=== PATIENT | female | born 1965 | race Caucasian/White ===

== ENCOUNTER 2016-11-24 11:00 | Inpatient (IN) | payer OTHER ==
[2016-11-23 15:39] VITALS: BMI 25.7
[2016-12-02] MEDS ORDERED: MIDAZOLAM HCL 2 MG/2 ML SINGLE DOSE VIAL ONE ×2 (07:30)
[2016-12-02] MEDS ORDERED: SUCCINYLCHOLINE CHLORIDE 200 MG/10 ML VIAL ONE (07:30)
[2016-12-02] MEDS ORDERED: ROCURONIUM BROMIDE 50 MG/5 ML VIAL ONE ×2 (07:30)
[2016-12-02] MEDS ORDERED: PROPOFOL 20 ML ONE ×5 (07:30)
[2016-12-02] MEDS ORDERED: THROMBIN (BOVINE) 5,000 UNIT VIAL TP ONE ×2 (08:56→10:01)
[2016-12-02] MEDS ORDERED: GLYCOPYRROLATE 0.2 MG/1 ML VIAL ONE (09:05)
[2016-12-02] MEDS ORDERED: CLINDAMYCIN PHOSPHATE 600 MG/4 ML VIAL ONE (09:05)
[2016-12-02] MEDS ORDERED: ONDANSETRON 4 MG/2 ML VIAL ONE (09:05)
[2016-12-02] MEDS ORDERED: DEXAMETHASONE SOD PHOSPHATE 4 MG/1 ML VIAL ONE (09:05)
[2016-12-02] MEDS ORDERED: HYDROmorphone HCL/PF 1 MG/ML VIAL (FOR PYXIS CHARGING ONLY) ONE ×2 (09:15→10:53)
[2016-12-02] MEDS ORDERED: GELATIN, ABSORBABLE 100 EACH SPONGE TP ONE (10:01)
[2016-12-02] MEDS ORDERED: ACETAMINOPHEN INJECTION 100 ML IVPB ONE (10:26)
[2016-12-02] MEDS ORDERED: NEOSTIGMINE METHYLSULFATE 0.5 MG/ML - 10 ML MDV ONE (10:27)
[2016-12-02] MEDS ORDERED: VANCOMYCIN 1,000 MG VIAL (RESTRICTED TO ID ONLY) ONE (11:27)
[2016-12-02] MEDS ORDERED: HYDROmorphone *PCA* 10MG/50ML DISP.SYRIN PCA ONE ×2 (11:49→13:27)
[2016-12-02] MEDS ORDERED: HYDROmorphone *PCA* 10MG/50ML DISP.SYRIN PCA SCH (12:30)
[2016-12-02] MEDS ORDERED: ONDANSETRON 4 MG/2 ML VIAL IVPUSH PRN (12:49)
[2016-12-02] MEDS: SODIUM CHLORIDE 0.45% 1,000 ML IV SCH (15:29)
[2016-12-02] MEDS: LACTATED RINGERS SOLUTION 1,000 ML IV SCH (15:30)
--- NOTE | 2016-12-02 18:24 | PN ---
Progress Note (short form) - Note Progress Note: the patient is resting comfortably. She complains of back pain well controlled on the IV OCEAN EXPORT COORDINATOR. Afebrile, vital signs are stable. The dressing is clean. Bilateral lower extremities show full motor strength. Distal pulses are 2+ bilaterally. Status post lumbar laminectomy and instrumented fusion at L4-5, clinically stable. -Out of bed, PT, ambulation training. -DC IV OCEAN EXPORT COORDINATOR tomorrow. -Anticipate discharge on December 04, 2016.
[2016-12-02] MEDS: CLINDAMYCIN 600MG PREMIX IVPB 50 ML IVPB SCH (18:48)
[2016-12-02 19:12] LABS: HIV 1 & 2 AB NEGATIVE; HIV 1 AGp24 NEGATIVE
[2016-12-02] MEDS: DOCUSATE SODIUM 100 MG CAPSULE (FP) PO SCH (21:57)
[2016-12-03] MEDS ORDERED: DEXAMETHASONE SOD PHOSPHATE 4 MG/1 ML VIAL IVPUSH PRN (00:59)
[2016-12-03] MEDS ORDERED: morphine SULFATE/PF 30 MG/30 ML *PCA* DISP.SYRIN PCA SCH (01:00)
[2016-12-03] MEDS ORDERED: morphine SULFATE/PF 30 MG/30 ML *PCA* DISP.SYRIN PCA ONE (01:12)
[2016-12-03] MEDS: CLINDAMYCIN 600MG PREMIX IVPB 50 ML IVPB SCH ×2 (01:42→09:44)
[2016-12-03] MEDS ORDERED: PT OWN MED DRAWER 7, Y5N ONE (09:42)
[2016-12-03] MEDS: FLUoxetine HCL 10 MG CAPSULE (FP) PO SCH (09:44)
[2016-12-03] MEDS: LACTOBACILLUS ACIDOPHILUS 1 EACH TAB (FP) PO SCH (09:44)
[2016-12-03] MEDS: CHOLECALCIFEROL (VITAMIN D3) 1,000 UNIT TABLET (FP) PO SCH (09:44)
[2016-12-03] MEDS: DOCUSATE SODIUM 100 MG CAPSULE (FP) PO SCH ×2 (09:44→21:31)
--- NOTE | 2016-12-03 09:55 | OP ---
DATE OF OPERATION: 12/02/2016 PREOPERATIVE DIAGNOSIS: 1. Lumbar spinal stenosis. 2. Degenerative spondylolisthesis. 3. Degenerative disc disease of lumbar spine. POSTOPERATIVE DIAGNOSIS: 1. Lumbar spinal stenosis. 2. Degenerative spondylolisthesis. 3. Degenerative disc disease of lumbar spine. PROCEDURE PERFORMED: 1. Posterior lumbar single-level arthrodesis at L4-L5. 2. Posterior lumbar decompressive laminectomy at L4-L5. 3. Application of nonsegmental posterior spinal instrumentation NuVasive MAS PLIF screws. Two 30-mm x 5.5-mm screws at L4 and two 30-mm x 35-mm screws at L5. SURGEON: Froylan Wiseman MD SINGLE RESOURCE BOSS: CATRINA Meza ANESTHESIA: General. INDICATIONS: The patient is a 50-year-old female with severe and persistent radicular pain down both lower extremities and severe back pain. This has been refractory to medications as well as epidural steroid injections and physical therapy. She has been symptomatic severely for almost a year. She is indicated for operative decompression as well as stabilization. Risks, benefits, and alternatives of the surgery were discussed in detail with the patient. Informed consent was obtained. DESCRIPTION: The patient was brought to the operating room by stretcher and general endotracheal anesthesia was administered by the anesthesiologist. A Lino catheter was inserted. Both lower extremities were then placed for intraoperative monitoring using Supercool Schoolvision System. The patient was then flipped into the prone position on the padded Rob frame and all bony prominences were well-padded. The back was then prepped and draped in the usual sterile fashion. A timeout was performed. Prophylactic IV antibiotics were administered. Fluoroscopic C-arm was draped to allow for intraoperative lateral fluoroscopic radiographs. Localizing radiograph was taken and a midline incision was made at the appropriate level. Dissection was carried down to the level of the fascia. The fascia was then split with electrocautery, exposing the L4 lamina as well as the L4-L5 facet joints bilaterally and the base of the L3-L4 facet. A deep retractor was then placed. Another localizing x-ray was taken. Instrumentation of the spine was done as follows: A pilot captain hole was made while visualizing under fluoroscopy, entering from the pars interarticularis at L4 and directed superior and lateral. A 5-mm drill was then passed while directly monitoring with the Neurovision System. The zabala of the pedicle were then checked with a probe and a 5.5-mm tap was then passed. In this fashion, two 30-mm x 5.5-mm screws were placed at L4. The same technique was used to place screws at L5 bilaterally, using two 5.5 x 35-mm screws. All of the screws stimulated greater than 20 milliamperes. A complete decompressive laminectomy of the L4 lamina was then performed with partial medial facetectomy and foraminotomy. There was noted to be severe spinal stenosis and ligamentum hypertrophy in keeping with the preoperative MRI. The severe stenosis was well decompressed. No durotomy was noted. Hemostasis was achieved. The wounds were then copiously irrigated. The facet joints were then prepared with arthrodesis using a bur. The joints were then packed with morselized local autograft as well as formal graft. The screw heads were then engaged. Two 30-mm rods were then secured into place with screw caps, which were final tightened using the torquing device. The deep fascia was closed with number 1 Vicryl suture in an interrupted fashion. The deep dermal tissue was approximated with 2-0 Vicryl suture. One gram of vancomycin powder was placed in the soft tissues for infection prophylaxis. The skin was closed with a running 2-0 nylon suture. A sterile dressing was applied. The patient tolerated the procedure well without complications. Sammy Mccallum PA-C, was necessary throughout the case for proper retraction of neural elements and instrumentation of the spine. This could not have been done without a skilled investigative assistant. Bruce [id number]
[2016-12-03] MEDS ORDERED: PATIENT'S OWN MEDICATION (NON-FORMULARY) (Vitamin B Complex [Vitamin B Complex] 1 EACH) PO SCH (10:00)
[2016-12-03] MEDS ORDERED: BIOTIN 2500 MCG PO SCH (10:00)
[2016-12-03] MEDS ORDERED: [UNRECOGNIZED DRUG - OTHER] MC SCH (10:00)
[2016-12-03] MEDS ORDERED: PATIENT'S OWN MEDICATION (NON-FORMULARY) (L.Acidoph,Paracasei, B.Lactis [Probiotic] 1 EACH PO SCH (10:00)
--- NOTE | 2016-12-03 10:22 | PN ---
Progress Note (short form) - Note Progress Note: Post op day#1.S/P L4L5 laminectomy with fusion uder GA uneventful.Patient stable and is on Dilaudid INDUSTRIAL ROBOTICS MECHANIC for pain management.Patient c/o pain score of 2-3 when lying in bed.Will continue INDUSTRIAL ROBOTICS MECHANIC today and will f/u tomorrow.
[2016-12-03] MEDS: SODIUM CHLORIDE 0.45% 1,000 ML IV SCH (13:35)
[2016-12-03] MEDS: LACTATED RINGERS SOLUTION 1,000 ML IV SCH (13:36)
--- NOTE | 2016-12-03 18:57 | PN ---
Progress Note (short form) - Note Progress Note: Orthopedic progress note. S: The patient is resting comfortably. She complains of localized low back pain well controlled on the IV MEDICAL APPOINTMENT CLERK. Relates previous left leg radiculopathy has resolved. Has ambulated x3 today with assistance, ambulating to bathroom. Denies any CP/SOB/N/D/V/Numbness/tingling to either lower extremity, denies any calf pain or tenderness. Tolerating diet and voiding without compromise. O: Vital Signs Period Temp Pulse Resp BP Sys/Fierro Pulse Ox Last 24 Hr 97.7 F-99.9 F 59-71 16-20 89-116/47-68 100-100 GEN: Supine, HoB elevated 30 degrees, B/L LEs elevated with pillows under flexed knees. JARAMILLO/NAD/VSS/Afebrile, Color good well appearing answering all questions appropriately. Back/LE: The dressing is clean dry and intact, minor expected post operative edema, tender to palpation around surgical site. Patient able to log roll under own power. LEs, NVID, SILT, bilateral calf non-tender to palpation, all compartments soft. Patient able to flex extend LEs without discomfort. Good bilateral quad strength. Strength 5/5 EHL, FHL, TA, GS with good dorsi/plantar flexion. Distal pulses are 2+ bilaterally. A/P: Status post lumbar laminectomy and instrumented fusion at L4-5, POD#1 clinically stable. -Out of bed, PT, ambulation training. -DC IV MEDICAL APPOINTMENT CLERK - Begin Percocet 1-2 tabs Q4-6 hours with breakthrough morphine - Orthopedic plan per Dr. Wiseman - Anticipate discharge on December 04, 2016
[2016-12-03] MEDS ORDERED: OXYCODONE/APAP 5/325MG COMBO TABLET PO PRN ×2 (18:58→18:59)
[2016-12-03] MEDS ORDERED: morphine CARPU-JECT 2 MG/1 ML DISP.SYRIN IVPUSH PRN (19:00)
[2016-12-03] MEDS ORDERED: morphine CARPU-JECT 4 MG/1 ML DISP.SYRIN IVPUSH PRN (19:04)
[2016-12-04 06:25] VITALS: BP 98/55; PULSE 64; TEMP 98.6
--- NOTE | 2016-12-04 06:50 | PN ---
Progress Note (short form) - Note Progress Note: Post op day#2.Patient stable has pain score of 2-3/10.BRAKE ADJUSTER was DC last night.No any anesthesia related problem.Patient DC from the anesthesia care.
--- NOTE | 2016-12-04 08:17 | PN ---
Progress Note (short form) - Note Progress Note: pain getting better, no leg pain avss dressing clean nvid POD#2 -oob/PT -d/c home
[2016-12-04] MEDS ORDERED: PT OWN MED DRAWER 7, Y5N ONE (09:14)
[2016-12-04] MEDS: DOCUSATE SODIUM 100 MG CAPSULE (FP) PO SCH (09:15)
[2016-12-04] MEDS: CHOLECALCIFEROL (VITAMIN D3) 1,000 UNIT TABLET (FP) PO SCH (09:15)
[2016-12-04] MEDS: FLUoxetine HCL 10 MG CAPSULE (FP) PO SCH (09:15)
[2016-12-04] MEDS: LACTOBACILLUS ACIDOPHILUS 1 EACH TAB (FP) PO SCH (09:16)
== END 2016-12-04 10:39 | disposition home or self-care (01) | DRG 498 ==
LOC: FM/S 12-02 06:27
PROVIDERS: ADMIT Orthopaedic Surgery Orthopaedic Surgery of the Spine; ATTEND Orthopaedic Surgery Orthopaedic Surgery of the Spine
PROC: 0SG00A1 (ICD-10-PCS; 2016-12-02)
PROC: 00NY0ZZ Release Lumbar Spinal Cord, Open Approach (ICD-10-PCS; principal; 2016-12-02 09:05)
DX: M51.36 Other intervertebral disc degeneration, lumbar region (principal); M48.06 Spinal stenosis, lumbar region; M43.16 Spondylolisthesis, lumbar region; F41.8 Other specified anxiety disorders
CPT/HCPCS: 36415; 72100-TC; 87389; 94760; 97116-GP; 97161-GP

== ENCOUNTER 2017-02-02 17:10 | Inpatient (IN) | payer OTHER ==
[2017-02-02 17:16] VITALS: BMI 26.4
[2017-02-02] MEDS ORDERED: morphine CARPU-JECT 4 MG/1 ML DISP.SYRIN IVPUSH ONE (17:23)
[2017-02-02] MEDS ORDERED: morphine CARPU-JECT 2 MG/1 ML DISP.SYRIN ONE (17:35)
[2017-02-02 17:38] LABS: PH,URINE 6.5 (4.5-8); URINE APPEARANCE Clear; URINE BILIRUBIN Negative (NEGATIVE); URINE BLOOD Negative (NEGATIVE); URINE GLUCOSE (UA) Negative (NEGATIVE); URINE KETONE Negative (NEGATIVE); URINE LEUK ESTERASE Trace (NEGATIVE); URINE NITRITE Negative (NEGATIVE); URINE PROTEIN Negative (NEGATIVE); URINE UROBILINOGEN 0.2 E.U/dl (0.2-1.0)
[2017-02-02 17:39] LABS: URINE COLOR YELLOW
[2017-02-02 17:43] LABS: BASOPHIL 1.2 % (0-2.0); EOSINOPHIL 7.3 % (0-4.5); MCH 29.3 pg (25.7-33.7); MCHC 33.7 g/dl (32.0-36.0); MEAN CELL VOLUME 87.2 fl (80-96); MEAN PLT VOLUME 7.7 fl (7.5-11.1); NEUTROPHILS 61.2 % (42.8-82.8); PLATELET COUNT 308 K/MM3 (134-434); RDW 12.1 % (11.6-15.6); WHITE BLOOD COUNT 8.8 K/mm3 (4.0-10.8)
[2017-02-02 17:54] LABS: ACTIVATED PTT 29.6 SECONDS (24.0-38.9)
[2017-02-02 17:55] LABS: ALBUMIN 4.3 g/dl (3.5-5.0); ALK PHOS 181 U/L (32-92); ANION GAP 10 (8-16); BILIRUBIN,TOTAL 0.8 mg/dl (0.2-1.0); CALCIUM 9.7 mg/dl (8.4-10.2); CO2 26 mmol/L (22-28); CREATININE 0.8 mg/dl (0.6-1.3); GLUCOSE,RANDOM 103 mg/dl (74-106); SGOT/AST 44 U/L (10-42); SGPT/ALT 53 U/L (10-40); TOT PROT 7.7 g/dl (6.4-8.3)
[2017-02-02 17:59] LABS: INR 1.1 (0.82-1.09); PROTHROMBIN TIME (PATIENT) 12.3 SEC (10.2-13.0)
--- NOTE | 2017-02-02 18:08 | PDOC ---
History of Present Illness - General History Source: Patient, Old Records Exam Limitations: No Limitations - History of Present Illness Initial Comments: The patient is a 51 year old female with a significant past medical history of chronic back, brought by [facility] to the emergency department today for further evaluation of worsening back pain status post laminectomy of the lower lumbar spine and fusion in November 2016. The patient was sent by her doctor for the OR tomorrow. She denies fever. <Ankit Nayak - Last Filed: 02/02/17 18:20> - General History Source: Patient Exam Limitations: No Limitations <David Castellano - Last Filed: 02/02/17 18:29> - General Chief Complaint: Pain, Acute Stated Complaint: LOWER BACK D/C Time Seen by Provider: 02/02/17 17:13 Past History <Ankit Nayak - Last Filed: 02/02/17 18:20> - Past Medical History Anemia: No Asthma: No Cancer: No Cardiac Disorders: No CVA: No COPD: No CHF: No Dementia: No Diabetes: No GI Disorders: No Disorders: No HTN: No Hypercholesterolemia: No Liver Disease: No Seizures: No Thyroid Disease: No - Psycho/Social/Smoking Cessation Hx Anxiety: No Suicidal Ideation: No Smoking History: Never smoked Have you smoked in the past 12 months: No Hx Alcohol Use: Yes Drug/Substance Use Hx: No Substance Use Type: Alcohol Hx Substance Use Treatment: No <David Castellano - Last Filed: 02/02/17 18:29> - Past Medical History Allergies/Adverse Reactions: Allergies Allergy/AdvReac Type Severity Reaction Status Date / Time erythromycin base Allergy Severe Difficulty Verified 02/02/17 17:11 Breathing Penicillins Allergy Hives Verified 02/02/17 17:11 Home Medications: Ambulatory Orders Fluoxetine HCl [Prozac -] 30 mg PO DAILY 11/23/16 Valacyclovir HCl [Valtrex] 1,000 mg PO WEEKLY 11/23/16 Buspirone HCl [Buspar -] 15 mg PO BID 02/02/17 Gabapentin [Neurontin -] 300 mg PO Q8H 02/02/17 Review of Systems - Review of Systems Able to Perform ROS?: Yes Comments:: GENERAL/CONSTITUTIONAL: No fever or chills. No weakness. HEAD, EYES, EARS, NOSE AND THROAT: No change in vision. No ear pain or discharge. No sore throat. CARDIOVASCULAR: No chest pain or shortness of breath. RESPIRATORY: No cough, wheezing, or hemoptysis. GASTROINTESTINAL: No nausea, vomiting, diarrhea or constipation. GENITOURINARY: No dysuria, frequency, or change in urination. MUSCULOSKELETAL: (+) Back pain SKIN: No rash NEUROLOGIC: No headache, vertigo, loss of consciousness, or change in strength/ sensation. ENDOCRINE: No increased thirst. No abnormal weight change. HEMATOLOGIC/LYMPHATIC: No anemia, easy bleeding, or history of blood clots. ALLERGIC/IMMUNOLOGIC: No hives or skin allergy. <Ankit Nayak - Last Filed: 02/02/17 18:20> *Physical Exam - Vital Signs Last Vital Signs Temp Pulse Resp BP Pulse Ox 98.5 F 80 16 115/75 100 02/02/17 17:11 02/02/17 17:11 02/02/17 17:11 02/02/17 17:11 02/02/17 17:11 - Physical Exam Comments: GENERAL: Awake, alert, and fully oriented, in no acute distress HEAD: No signs of trauma EYES: PERRLA, EOMI, sclera anicteric, conjunctiva clear ENT: Auricles normal inspection, hearing grossly normal, nares patent, oropharynx clear without exudates. Moist mucosa NECK/BACK: (+) Back abscess with drainage, mild oozing, and mild erythema, LUNGS: Breath sounds equal, clear to auscultation bilaterally. No wheezes, and no crackles HEART: Regular rate and rhythm, normal S1 and S2, no murmurs, rubs or gallops ABDOMEN: Soft, nontender, normoactive bowel sounds. No guarding, no rebound. No masses EXTREMITIES: Normal range of motion, no edema. No clubbing or cyanosis. No cords, erythema, or tenderness NEUROLOGICAL: Cranial nerves II through XII grossly intact. Normal speech, normal gait SKIN: Warm, Dry, normal turgor, no rashes or lesions noted. <Ankit Nayak - Last Filed: 02/02/17 18:20> - Vital Signs Last Vital Signs Temp Pulse Resp BP Pulse Ox 98.5 F 80 16 115/75 100 02/02/17 17:11 02/02/17 17:11 02/02/17 17:11 02/02/17 17:11 02/02/17 17:11 <David Castellano - Last Filed: 02/02/17 18:29> Heart Score/ECG Review #1 ECG reviewed & interpreted by me at: 18:10 02/02/17 18:09 NSR 66, no std/marialuisa, normal axis, normal intervals, QTC 389 msec <David Castellano - Last Filed: 02/02/17 18:29> ED Treatment Course - LABORATORY CBC & Chemistry Diagram: 02/02/17 17:33 02/02/17 17:33 - ADDITIONAL ORDERS Additional order review: Laboratory Results 02/02/17 02/02/17 02/02/17 17:33 17:33 17:33 INR 1.10 PTT (Actin FS) 29.6 Sodium 138 Potassium 3.9 Chloride 102 Carbon Dioxide 26 Anion Gap 10 BUN 12 Creatinine 0.8 Creat Clearance w eGFR > 60 Random Glucose 103 Calcium 9.7 Total Bilirubin 0.8 AST 44 H ALT 53 H Alkaline Phosphatase 181 H Total Protein 7.7 Albumin 4.3 Urine Color Yellow Urine Appearance Clear Urine pH 6.5 Ur Specific [place] 1.015 Urine Protein Negative Urine Glucose (UA) Negative Urine Ketones Negative Urine Blood Negative Urine Nitrite Negative Urine Bilirubin Negative Urine Urobilinogen 0.2 e.u/dl Ur Leukocyte Esterase Trace 02/02/17 17:33 RBC 4.40 MCV 87.2 MCHC 33.7 RDW 12.1 MPV 7.7 Neutrophils % 61.2 Lymphocytes % 19.4 Monocytes % 10.9 H Eosinophils % 7.3 H Basophils % 1.2 - Medications Given in the ED: ED Medications Discontinued Medications Generic Name Dose Route Start Last Admin Trade Name Stan PRN Reason Stop Dose Admin Morphine Sulfate 4 mg 02/02/17 17:23 02/02/17 17:41 Morphine Injection - IVPUSH 02/02/17 17:24 4 mg ONCE ONE Administration <Ankit Nayak - Last Filed: 02/02/17 18:20> - LABORATORY CBC & Chemistry Diagram: 02/02/17 17:33 02/02/17 17:33 - ADDITIONAL ORDERS Additional order review: Laboratory Results 02/02/17 02/02/17 17:33 17:33 Sodium 138 Potassium 3.9 Chloride 102 Carbon Dioxide 26 Anion Gap 10 BUN 12 Creatinine 0.8 Creat Clearance w eGFR > 60 Random Glucose 103 Calcium 9.7 Total Bilirubin 0.8 AST 44 H ALT 53 H Alkaline Phosphatase 181 H Total Protein 7.7 Albumin 4.3 Urine Color Yellow Urine Appearance Clear Urine pH 6.5 Ur Specific [place] 1.015 Urine Protein Negative Urine Glucose (UA) Negative Urine Ketones Negative Urine Blood Negative Urine Nitrite Negative Urine Bilirubin Negative Urine Urobilinogen 0.2 e.u/dl Ur Leukocyte Esterase Trace 02/02/17 17:33 RBC 4.40 MCV 87.2 MCHC 33.7 RDW 12.1 MPV 7.7 Neutrophils % 61.2 Lymphocytes % 19.4 Monocytes % 10.9 H Eosinophils % 7.3 H Basophils % 1.2 - RADIOLOGY Radiology Studies Ordered: Category Date Time Status CHEST X-RAY PORTABLE* [RAD] Stat Radiology 02/02/17 17:23 Taken - Medications Given in the ED: ED Medications Discontinued Medications Generic Name Dose Route Start Last Admin Trade Name Freq PRN Reason Stop Dose Admin Morphine Sulfate 4 mg 02/02/17 17:23 02/02/17 17:41 Morphine Injection - IVPUSH 02/02/17 17:24 4 mg ONCE ONE Administration <David Castellano - Last Filed: 02/02/17 18:29> Medical Decision Making - Medical Decision Making 02/02/17 18:00 A portion of this note was documented by scribe services under my direction. I have reviewed the details of the note, within reason, and agree with the documentation with the following case summary and management plan written by me. Patient treated in the ED. Nursing notes are reviewed and incorporated into the medical decision-making. Vital signs reviewed. Peripheral IV access obtained by the nurse, laboratory studies are drawn and sent, reviewed and interpreted by myself. Vital Signs Temp Pulse Resp BP Pulse Ox 98.5 F 80 16 115/75 100 02/02/17 17:11 02/02/17 17:11 02/02/17 17:11 02/02/17 17:11 02/02/17 17:11 51-year-old female with past medical history of chronic back pain, status post laminectomy of lower lumbar spine and fusion in November 2016 presents from orthopedic office here at [facility] for lumbar back abscess. The patient has developed worsening back pain with drainage and erythema. Saw their doctor today and was brought to the ED by [facility] for OR tomorrow. They request no antibiotic at this time and they will obtain cultures in the operating. Patient denies fevers. Does report some back pain. We'll obtain blood cultures, ESR, CRP to give pain control. We'll admit the patient to hospital. Nothing by mouth after midnight. Preoperative labs and chest x-ray. CBC, BMP 02/02/17 17:33 02/02/17 17:33 CMP Sodium 138 mmol/L (136-145) 02/02/17 17:33 Potassium 3.9 mmol/L (3.5-5.1) 02/02/17 17:33 Chloride 102 mmol/L (98-107) 02/02/17 17:33 Carbon Dioxide 26 mmol/L (22-28) 02/02/17 17:33 Anion Gap 10 (8-16) 02/02/17 17:33 BUN 12 mg/dl (7-18) 02/02/17 17:33 Creatinine 0.8 mg/dl (0.6-1.3) 02/02/17 17:33 Creat Clearance w eGFR > 60 (>60) 02/02/17 17:33 Random Glucose 103 mg/dl (74-106) 02/02/17 17:33 Calcium 9.7 mg/dl (8.4-10.2) 02/02/17 17:33 Total Bilirubin 0.8 mg/dl (0.2-1.0) 02/02/17 17:33 AST 44 U/L (10-42) H 02/02/17 17:33 ALT 53 U/L (10-40) H 02/02/17 17:33 Alkaline Phosphatase 181 U/L (32-92) H 02/02/17 17:33 Total Protein 7.7 g/dl (6.4-8.3) 02/02/17 17:33 Albumin 4.3 g/dl (3.5-5.0) 02/02/17 17:33 02/02/17 18:29 Case discussed with farhana hospitalist. Will admit under med/surg admission for back abscess Case discussed in detail with admitting physician including history, physical exam and ancillary studies. Admitting physician has assumed care for the patient, will follow all pending diagnostics and will complete the evaluation and treatment. <David Castellano Filed: 02/02/17 18:29> *DC/Admit/Observation/Transfer - Attestations Scribe Attestion: Documentation prepared by Ankit Nayak, acting as medical collector for David Castellano MD. <Ankit Nayak - Last Filed: 02/02/17 18:20> - Discharge Dispostion Admit: Yes <David Castellano - Last Filed: 02/02/17 18:29> Diagnosis at time of Disposition: Abscess of back - Discharge Dispostion Condition at time of disposition: Stable
[2017-02-02 18:51] LABS: ERYTHROCYTE SEDIMENTATION RATE 45 mm/hr (0-30)
[2017-02-02 18:59] LABS: C-REACTIVE PROTEIN 8.8 MG/DL (0.00-0.3)
--- NOTE | 2017-02-02 20:02 | HP ---
CHIEF COMPLAINT: Back Pain PCP: [facility] HISTORY OF PRESENT ILLNESS: This is a 51 y/o female with a past medical history of Chronic Back pain s/p Laminectomy/Fusion 11/2016, Depression, Anxiety, Genital Herpes. Who presents to the emergency department from Orthopedic's office with lumbar pain and discharge from surgical site. Patient reports having lumbar pain and noting leaking through her clothes from the surgical site x 2 days. She reports the discharge as clear to yellow with foul smelling odor. Patient went to see her ortho today and was sent in for admission for Lumbar Abscess. Patient denies bowel or urinary loss of function. Patient denies fever, chills, SOB, CP, AP, N/ V/D, constipation, dysuria. ER course was notable for: (1) CRP 8.8 (2) No Luekocytosis, Afebrile (3) EKG- NSR 66 bpm, no STD/PEÑA Recent Travel: None PAST MEDICAL HISTORY: See HPI PAST SURGICAL HISTORY: See HPI Social History: Smoking: Never Alcohol: Socially Drugs: None Family History: Non-contributory Allergies erythromycin base Allergy (Severe, Verified 02/02/17 17:11) Difficulty Breathing Penicillins Allergy (Verified 02/02/17 17:11) Hives HOME MEDICATIONS: Home Medications Medication Instructions Recorded Fluoxetine HCl [Prozac -] 30 mg PO DAILY 11/23/16 Valacyclovir HCl [Valtrex] 1,000 mg PO WEEKLY 11/23/16 Buspirone HCl [Buspar -] 15 mg PO BID 02/02/17 Gabapentin [Neurontin -] 300 mg PO Q8H 02/02/17 REVIEW OF SYSTEMS CONSTITUTIONAL: Absent: fever, chills, diaphoresis, generalized weakness, malaise, loss of appetite, weight change HEENT: Absent: rhinorrhea, nasal congestion, throat pain, throat swelling, difficulty swallowing, mouth swelling, ear pain, eye pain, visual changes CARDIOVASCULAR: Absent: chest pain, syncope, palpitations, irregular heart rate, lightheadedness , peripheral edema RESPIRATORY: Absent: cough, shortness of breath, dyspnea with exertion, orthopnea, wheezing, stridor, hemoptysis GASTROINTESTINAL: Absent: abdominal pain, abdominal distension, nausea, vomiting, diarrhea, constipation, melena, hematochezia GENITOURINARY: Absent: dysuria, frequency, urgency, hesitancy, hematuria, flank pain, genital pain MUSCULOSKELETAL: back pain Absent: myalgia, arthralgia, joint swelling, neck pain SKIN: clear- yellow discharge from lower lumbar Absent: rash, itching, lesion HEMATOLOGIC/IMMUNOLOGIC: Absent: easy bleeding, easy bruising, lymphadenopathy, frequent infections ENDOCRINE: Absent: unexplained weight gain, unexplained weight loss, heat intolerance, cold intolerance NEUROLOGIC: Absent: headache, focal weakness or paresthesias, dizziness, unsteady gait, seizure, mental status changes, bladder or bowel incontinence PSYCHIATRIC: Absent: anxiety, depression, suicidal or homicidal ideation, hallucinations. PHYSICAL EXAMINATION GENERAL: Awake, alert, and fully oriented, in mild distress. HEAD: Normal with no signs of trauma. EYES: Pupils equal, round and reactive to light, extraocular movements intact, sclera anicteric, conjunctiva clear. No lid lag. EARS, NOSE, THROAT: Ears normal, nares patent, oropharynx clear without exudates. Moist mucous membranes. NECK: Normal range of motion, supple without lymphadenopathy, JVD, or masses. LUNGS: Breath sounds equal, clear to auscultation bilaterally. No wheezes, and no crackles. No accessory muscle use. HEART: Regular rate and rhythm, normal S1 and S2 without murmur, rub or gallop. ABDOMEN: Soft, nontender, not distended, normoactive bowel sounds, no guarding, no rebound, no masses. No hepatomegaly or splenomegaly. MUSCULOSKELETAL: Tenderness to lower lumbar. Normal range of motion at all joints. No bony deformities. No CVA tenderness. UPPER EXTREMITIES: 2+ pulses, warm, well-perfused. No cyanosis. No clubbing. No peripheral edema. LOWER EXTREMITIES: 2+ pulses, warm, well-perfused. No calf tenderness. No peripheral edema. NEUROLOGICAL: Cranial nerves II-XII intact. Normal speech. Antalgic gait with cane. PSYCHIATRIC: Cooperative. Good eye contact. Appropriate mood and affect. SKIN: Back abscess with serous drainage, mild oozing, and mild erythema noted. Warm, dry, normal turgor, no rashes. normal capillary refill. Laboratory Results - last 24 hr 02/02/17 02/02/17 02/02/17 17:20 17:33 17:33 WBC 8.8 RBC 4.40 Hgb 12.9 Hct 38.4 MCV 87.2 MCHC 33.7 RDW 12.1 Plt Count 308 MPV 7.7 Neutrophils % 61.2 Lymphocytes % 19.4 Monocytes % 10.9 H Eosinophils % 7.3 H Basophils % 1.2 ESR 45 H INR PTT (Actin FS) Sodium 138 Potassium 3.9 Chloride 102 Carbon Dioxide 26 Anion Gap 10 BUN 12 Creatinine 0.8 Creat Clearance w eGFR > 60 Random Glucose 103 Calcium 9.7 Total Bilirubin 0.8 AST 44 H ALT 53 H Alkaline Phosphatase 181 H C-Reactive Protein 8.8 H Total Protein 7.7 Albumin 4.3 Urine Color Urine Appearance Urine pH Ur Specific [place] Urine Protein Urine Glucose (UA) Urine Ketones Urine Blood Urine Nitrite Urine Bilirubin Urine Urobilinogen Ur Leukocyte Esterase Blood Type A POSITIVE Antibody Screen 02/02/17 02/02/17 02/02/17 17:33 17:33 17:33 WBC RBC Hgb Hct MCV MCHC RDW Plt Count MPV Neutrophils % Lymphocytes % Monocytes % Eosinophils % Basophils % ESR INR 1.10 PTT (Actin FS) 29.6 Sodium Potassium Chloride Carbon Dioxide Anion Gap BUN Creatinine Creat Clearance w eGFR Random Glucose Calcium Total Bilirubin AST ALT Alkaline Phosphatase C-Reactive Protein Total Protein Albumin Urine Color Yellow Urine Appearance Clear Urine pH 6.5 Ur Specific [place] 1.015 Urine Protein Negative Urine Glucose (UA) Negative Urine Ketones Negative Urine Blood Negative Urine Nitrite Negative Urine Bilirubin Negative Urine Urobilinogen 0.2 e.u/dl Ur Leukocyte Esterase Trace Blood Type A POSITIVE Antibody Screen Negative *Heart Score/ECG Review #1 02/02/17 18:09 NSR 66, no std/peña, normal axis, normal intervals, QTC 389 msec ASSESSMENT/PLAN: This is a 51 y/o female with a PMHx of: Chronic Back Pain, Back Injury (work related, 2011), s/p Laminectomy/ Fusion(11/2016), Depression, Anxiety, Genital Herpes. Admitted for Lumbar Abscess, Back Pain for further evaluation of their emergent condition. Plan: 1. Lumbar Abscess - Purulent serous drainage noted on dressing with erythema to lower lumbar - Blood Cultures-pending - Elevated CRP - No Leukocytosis, Afebrile - Repeat CBC in am - Monitor vitals - Ortho Consulted- will take patient to OR tomorrow for Washout, cultures - Per Ortho, no ABX - NPO after midnight - Pain Mgmt- Morphine Sulfate prn 2. Chronic Back Pain - See Above 3. Depression and Anxiety - Continue Prozac, Buspar 4. Genital Herpes - Continue Valtrex 5. FEN - D5 1/2 NS @75cc/hr - Replete lytes prn - NPO after midnight 6. DVT Prophylaxis - OOB - SCDs - Heparin SQ Code Status: Full Code Problem List - Problem (1) Back abscess Code(s): L02.212 - CUTANEOUS ABSCESS OF BACK [ANY PART, EXCEPT BUTTOCK] (2) Depression with anxiety Code(s): F41.8 - OTHER SPECIFIED ANXIETY DISORDERS (3) Chronic back pain Code(s): M54.9 - DORSALGIA, UNSPECIFIED G89.29 - OTHER CHRONIC PAIN (4) Herpes genitalia Code(s): A60.00 - HERPESVIRAL INFECTION OF UROGENITAL SYSTEM, UNSPECIFIED (5) DVT prophylaxis Code(s): [id number] - Visit type - Emergency Visit Emergency Visit: Yes ED Registration Date: 02/02/17 Care time: The patient presented to the Emergency Department on the above date and was hospitalized for further evaluation of their emergent condition. - New Patient This patient is new to me today: Yes Date on this admission: 02/02/17 - Critical Care Critical Care patient: No
[2017-02-02] MEDS ORDERED: ONDANSETRON 4 MG/2 ML VIAL IVPUSH PRN (20:11)
[2017-02-02] MEDS: morphine CARPU-JECT 4 MG/1 ML DISP.SYRIN IVPUSH PRN (22:37)
[2017-02-03] MEDS ORDERED: DEXTROSE 5%-0.45% SALINE 1,000 ML IV SCH (00:01)
[2017-02-03 08:27] LABS: ANION GAP 10 (8-16); CALCIUM 9.2 mg/dl (8.4-10.2); CO2 26 mmol/L (22-28); CREATININE 0.7 mg/dl (0.6-1.3); GLUCOSE,RANDOM 105 mg/dl (74-106)
[2017-02-03 08:32] LABS: BASOPHIL 1.2 % (0-2.0); EOSINOPHIL 8.5 % (0-4.5); MCHC 34.3 g/dl (32.0-36.0); MEAN CELL VOLUME 87.4 fl (80-96); MEAN PLT VOLUME 8.1 fl (7.5-11.1); NEUTROPHILS 52.6 % (42.8-82.8); PLATELET COUNT 233 K/MM3 (134-434); RDW 12.4 % (11.6-15.6); WHITE BLOOD COUNT 6.8 K/mm3 (4.0-10.8)
--- NOTE | 2017-02-03 09:34 | PN ---
Physical Exam: SUBJECTIVE: Patient seen and examined, pt is s/p I&D of lumbar wound, denies any paresthesia to the lower extremities, reports 10/10 burning pain to the lower back. OBJECTIVE: patient is a 51 y/o female with a past medical history of Chronic Back pain s/p Laminectomy/Fusion 11/2016, Depression, Anxiety, Herpes simplex type II. patient was admitted from the emergency department for lumbar wound, pt is s/p I&D of lumbar wound (Oh). Vital Signs Period Temp Pulse Resp BP Sys/Fierro Pulse Ox Last 24 Hr 98.1 F-98.3 F 65-67 18-18 94-107/57-73 95-96 GENERAL: The patient is awake, alert, and fully oriented, in no acute distress. HEAD: Normal with no signs of trauma. EYES: PERRL, extraocular movements intact, sclera anicteric, conjunctiva clear. No ptosis. ENT: Ears normal, nares patent, oropharynx clear without exudates, moist mucous membranes. NECK: Trachea midline, full range of motion, supple. LUNGS: Breath sounds equal, clear to auscultation bilaterally, no wheezes, no crackles, no accessory muscle use. HEART: Regular rate and rhythm, S1, S2 without murmur, rub or gallop. ABDOMEN: Soft, nontender, nondistended, normoactive bowel sounds, no guarding, no rebound, no hepatosplenomegaly, no masses. EXTREMITIES: 2+ pulses, warm, well-perfused, no edema. NEUROLOGICAL: Cranial nerves II through XII grossly intact. Normal speech, gait not observed. PSYCH: Normal mood, normal affect. SKIN: Warm, dry, normal turgor, no rashes or lesions noted, unable assess surgical incision due to patient intolerance to turning secondary to pain Laboratory Results - last 24 hr 02/03/17 02/03/17 07:18 07:18 WBC 6.8 RBC 3.67 Hgb 11.0 D Hct 32.1 L D MCV 87.4 MCHC 34.3 RDW 12.4 Plt Count 233 D MPV 8.1 Neutrophils % 52.6 Lymphocytes % 23.6 D Monocytes % 14.1 H Eosinophils % 8.5 H Basophils % 1.2 Sodium 139 Potassium 4.0 Chloride 103 Carbon Dioxide 26 Anion Gap 10 BUN 9 D Creatinine 0.7 Random Glucose 105 Calcium 9.2 Active Medications Generic Name Dose Route Start Last Admin Trade Name Stan PRN Reason Stop Dose Admin Dextrose/Sodium Chloride 1,000 mls @ 75 mls/hr 02/03/17 00:01 D5-1/2ns - IV [facility] Morphine Sulfate 4 mg 02/02/17 20:10 02/02/17 22:37 Morphine Injection - IVPUSH 4 mg Q6H PRN Administration PAIN Ondansetron HCl 4 mg 02/02/17 20:11 Zofran Injection IVPUSH Q6H PRN NAUSEA AND/OR VOMITING Senna 1 tab 02/03/17 10:00 Senna - PO BID CHRIS ASSESSMENT/PLAN: 1. s/p I&D of lumbar wound POD #O (Oh) - f/u wound, blood and urine cultures-->clindamycin started post op today after wound cultures were obtained in the OR - reports 06/29 pain, continue morphine 4mg q6h prn, start ultram 50mg q6h, ofirmev x 1 ordered, pt reports adverse reaction to oxycodone and dilaudid - PT as per orthopedist - incentive spirometer, neurovascular checks q4h - Dr TEJADA consulted and followed - appreciate ID input (Sky) 2. Depression and Anxiety - Continue Prozac, Buspar 3. ID: herpes simplex II - Continue Valtrex 5. FEN - D5 1/ NS @75cc/hr - full liquid tray - Replete lytes prn 6. DVT Prophylaxis - OOB - SCDs - Heparin SQ Code Status: Full Code Visit type - Emergency Visit Emergency Visit: Yes ED Registration Date: 02/02/17 Care time: The patient presented to the Emergency Department on the above date and was hospitalized for further evaluation of their emergent condition. - New Patient This patient is new to me today: Yes Date on this admission: 02/03/17 - Critical Care Critical Care patient: No
[2017-02-03] MEDS ORDERED: PROPOFOL 20 ML ONE ×2 (10:26)
[2017-02-03] MEDS ORDERED: ROCURONIUM BROMIDE 50 MG/5 ML VIAL ONE (10:27)
[2017-02-03] MEDS ORDERED: ONDANSETRON 4 MG/2 ML VIAL ONE ×2 (10:27→12:26)
[2017-02-03] MEDS ORDERED: LIDOCAINE HCL/PF 2% SDV 5ML VIAL ONE (10:27)
[2017-02-03] MEDS ORDERED: MIDAZOLAM HCL 2 MG/2 ML SINGLE DOSE VIAL ONE (10:27)
[2017-02-03] MEDS ORDERED: DEXAMETHASONE SOD PHOSPHATE 4 MG/1 ML VIAL ONE (10:27)
[2017-02-03] MEDS: SENNOSIDES 8.6MG TABLET (FP) PO SCH ×2 (11:14→21:46)
[2017-02-03] MEDS ORDERED: GENTAMICIN SO4 80 MG/2 ML VIAL ONE (11:26)
[2017-02-03] MEDS ORDERED: POLYMYXIN B SULFATE 500,000 UNIT VIAL ONE (11:27)
[2017-02-03] MEDS ORDERED: CLINDAMYCIN PHOSPHATE 600 MG/4 ML VIAL ONE (11:34)
[2017-02-03] MEDS ORDERED: GLYCOPYRROLATE 0.2 MG/1 ML VIAL ONE (12:01)
[2017-02-03] MEDS ORDERED: NEOSTIGMINE METHYLSULFATE 0.5 MG/ML - 10 ML MDV ONE (12:01)
--- NOTE | 2017-02-03 12:13 | OP ---
Operative Note - Note: Operative Date: 02/03/17 Pre-Operative Diagnosis: Lumbar wound infection Operation: Irrigation and debridement of lumbar wound Findings: a superficial fluid collection was found, cultures were sent. the fascia was intact. a small window was made into the deep tissues after pulsatile lavage of superficial wound. no collection noted deep. entire wound was washed out with additional 6 liters. Post-Operative Diagnosis: Same as Pre-op Surgeon: Froylan Wiseman Anesthesia: General Estimated Blood Loss (mls): 50 Operative Report Dictated: Yes
--- NOTE | 2017-02-03 12:22 | PN ---
Progress Note (short form) - Note Progress Note: Pt is now one month s/p laminectomy and instrumented fusion of L4/5. She was doing well at home until three days ago when developed drainage from the wound after a small scab fell off. She was not having fevers. No motor deficits Wound was intact without redness with two 1mm openings distally draining thick, murky fluid Labs: WBC 6.8, ESR 45, CRP 8.8 I&D was performed -fluid collection only in superficial compartment - deep fascia was intact and explored with no sign of deep infection -Clindamycin started after cultures taken, will continue on Clindamycin until cultures come back -will obtain ID consult -will follow wound daily
[2017-02-03] MEDS ORDERED: HYDROmorphone HCL CARPU-JECT 1 MG/1 ML DISP.SYRIN ONE (13:06)
[2017-02-03] MEDS ORDERED: ONDANSETRON 4 MG/2 ML VIAL IVPUSH PRN (13:27)
[2017-02-03] MEDS: morphine CARPU-JECT 4 MG/1 ML DISP.SYRIN IVPUSH PRN (13:30)
[2017-02-03] MEDS ORDERED: traMADol HCL 50 MG TABLET PO PRN (14:02)
[2017-02-03] MEDS ORDERED: ACETAMINOPHEN 1000 MG/100 ML VIAL (NON FORMULARY) IVPB ONE (14:05)
--- NOTE | 2017-02-03 15:09 | EKG ---
Test Reason : Blood Pressure : / mmHG Vent. Rate : 066 BPM Atrial Rate : 066 BPM P-R Int : 178 ms QRS Dur : 084 ms QT Int : 372 ms P-R-T Axes : 035 028 036 degrees QTc Int : 389 ms NORMAL SINUS RHYTHM NO PREVIOUS ECGS AVAILABLE Confirmed by MD GYU MARJORY ([id number]) on 02/03/2017 3:09:11 PM Referred By: DR TAVAREZ Confirmed By:FLAQUITO GUY MD
[2017-02-03] MEDS: OXYCODONE/APAP 5/325MG COMBO TABLET PO PRN ×2 (16:25→21:45)
[2017-02-03] MEDS ORDERED: OXYCODONE/APAP 5/325MG COMBO TABLET ONE (16:38)
[2017-02-03] MEDS ORDERED: OXYCODONE/APAP 5/325MG COMBO TABLET PO PRN (16:42)
[2017-02-03] MEDS ORDERED: morphine CARPU-JECT 2 MG/1 ML DISP.SYRIN IVPUSH PRN (16:43)
[2017-02-03] MEDS: CLINDAMYCIN 600MG PREMIX IVPB 50 ML IVPB SCH (19:00)
[2017-02-03] MEDS: busPIRone HCL 5 MG TABLET PO SCH (21:45)
[2017-02-04] MEDS: CLINDAMYCIN 600MG PREMIX IVPB 50 ML IVPB SCH (02:05)
[2017-02-04] MEDS: OXYCODONE/APAP 5/325MG COMBO TABLET PO PRN ×5 (04:57→21:25)
[2017-02-04 08:27] LABS: BASOPHIL 0.5 % (0-2.0); EOSINOPHIL 1.2 % (0-4.5); MCH 29.6 pg (25.7-33.7); MCHC 34.1 g/dl (32.0-36.0); MEAN CELL VOLUME 86.7 fl (80-96); MEAN PLT VOLUME 8.2 fl (7.5-11.1); NEUTROPHILS 74.7 % (42.8-82.8); PLATELET COUNT 252 K/MM3 (134-434); WHITE BLOOD COUNT 10.1 K/mm3 (4.0-10.8)
--- NOTE | 2017-02-04 08:45 | PN ---
Progress Note (short form) - Note Progress Note: ID Consult dictated POD#1 I&D subcutaneous collection at lumbar laminectomy surgical site PCN/ erythromycin allergies Pending cultures, empiric vancomycin / levaquin
[2017-02-04 08:46] LABS: ALBUMIN 3.2 g/dl (3.5-5.0); ALK PHOS 134 U/L (32-92); ANION GAP 10 (8-16); BILIRUBIN,TOTAL 0.7 mg/dl (0.2-1.0); CALCIUM 9.1 mg/dl (8.4-10.2); CO2 24 mmol/L (22-28); CREATININE 0.8 mg/dl (0.6-1.3); GLUCOSE,RANDOM 101 mg/dl (74-106); MAGNESIUM 1.7 mg/dL (1.8-2.4); PHOSPHOROUS 4.2 mg/dl (2.5-4.6); SGOT/AST 20 U/L (10-42); SGPT/ALT 29 U/L (10-40); TOT PROT 6.2 g/dl (6.4-8.3)
[2017-02-04] MEDS ORDERED: MAGNESIUM SULFATE 2 GM in SODIUM CHLORIDE 100 ML IVPB ONE (09:35)
[2017-02-04] MEDS ORDERED: MAGNESIUM SULF 50% (8.12 MEQ/2 ML-1 GM VIAL) IVPB ONE (10:00)
[2017-02-04] MEDS ORDERED: PT OWN MED DRAWER 7, Y5N ONE (10:10)
[2017-02-04] MEDS: FLUoxetine HCL 10 MG CAPSULE (FP) PO SCH (10:22)
[2017-02-04] MEDS: ENOXAPARIN NA (PORCINE) 40 MG/0.4 ML DISP.SYRIN SQ SCH (10:23)
[2017-02-04] MEDS: SENNOSIDES 8.6MG TABLET (FP) PO SCH ×2 (10:23→21:24)
[2017-02-04] MEDS: busPIRone HCL 5 MG TABLET PO SCH ×2 (10:23→21:24)
[2017-02-04] MEDS: LEVOFLOXACIN 500 MG IVPB 100 ML IVPB SCH (10:23)
[2017-02-04] MEDS: VANCOMYCIN 1 GRAM (PRE-DOCKED) 250 ML IVPB SCH ×2 (10:24→23:02)
--- NOTE | 2017-02-04 11:26 | OP ---
DATE OF OPERATION: PREOPERATIVE DIAGNOSIS: Lumbar wound infection. POSTOPERATIVE DIAGNOSIS: Lumbar wound infection. PROCEDURE PERFORMED: Irrigation and debridement of lumbar wound infection. SURGEON: Froylan Wiseman MD ANESTHESIA: General. INDICATION: The patient is a 51-year-old female who is 1 month removed from a lumbar laminectomy and instrument fusion. Her postoperative course has been complained with prolonged wound drainage without signs of infection. However, the wound healed uneventfully, and she was now a month status post surgery when 2 days ago she began to develop drainage from the wound. She denied any fevers. She was evaluated in the office and diagnosed with a back wound infection. She is indicated for irrigation and debridement. Risks, benefits, and alternatives of the surgery were discussed in detail with the patient. Informed consent was obtained. DESCRIPTION OF PROCEDURE: The patient was brought into the operating room by stretcher, and general endotracheal anesthesia was administered by the anesthesiologist. The patient was then flipped into the prone position on the padded Rob frame, and all bony prominences are well padded. Examination of the wound showed that the wound was intact without redness. There were 2 small punctate areas where there was drainage of murky fluid. A time-out was performed. The old incision was then opened up with a knife. Cultures were then sent off. She was started on IV clindamycin after the culture were sent. Exploration of the wound showed that there was a superficial collection with purulent-appearing fluid. This was washed out, and I irrigated the superficial compartment with 3 L of antibiotic wash. There was a defect in the fascia noted. After the washout of the superficial compartment, I used a knife and opened up a 2-cm area of the fascia to explore the deep compartment. No collection was noted. The whole wound was then pulsatile lavage irrigated with antibiotic and normal saline totaling 6 more liters. A Hemovac was then placed, and the wound was then closed with a combination of No. 1 Prolene suture as well as 2-0 nylon suture. A sterile dressing was applied. The patient tolerated the procedure well without complications. The plan at this time is for Infectious Disease consult, following of the cultures, and daily wound checks. Bruce [id number]
--- NOTE | 2017-02-04 12:03 | PN ---
Physical Exam: SUBJECTIVE: Patient seen and examined, pt reports feeling pain is better controlled after starting PRN percocet, pt denies any paresthesia to the lower extremities OBJECTIVE: patient is a 51 y/o female with a past medical history of Chronic Back pain s/p Laminectomy/Fusion 11/2016, Depression, Anxiety, Herpes simplex type II. patient was admitted from the emergency department for lumbar wound, pt is s/p I&D of lumbar wound (Oh), POD #1 Vital Signs Period Temp Pulse Resp BP Sys/Fierro Pulse Ox Last 24 Hr 97.8 F-98.9 F 51-79 10-18 85-106/51-80 97-100 Intake & Output 02/01/17 02/02/17 02/03/17 02/04/17 23:59 23:59 23:59 23:59 Intake Total 1450 Output Total 427.5 5 Balance 1022.5 -5 Weight 69.853 kg GENERAL: The patient is awake, alert, and fully oriented, in no acute distress. HEAD: Normal with no signs of trauma. EYES: PERRL, extraocular movements intact, sclera anicteric, conjunctiva clear. No ptosis. ENT: Ears normal, nares patent, oropharynx clear without exudates, moist mucous membranes. NECK: Trachea midline, full range of motion, supple. LUNGS: Breath sounds equal, clear to auscultation bilaterally, no wheezes, no crackles, no accessory muscle use. HEART: Regular rate and rhythm, S1, S2 without murmur, rub or gallop. ABDOMEN: Soft, nontender, nondistended, normoactive bowel sounds, no guarding, no rebound, no hepatosplenomegaly, no masses. EXTREMITIES: 2+ pulses, warm, well-perfused, no edema. NEUROLOGICAL: Cranial nerves II through XII grossly intact. Normal speech, gait not observed. PSYCH: Normal mood, normal affect. SKIN: Warm, dry, normal turgor, no rashes or lesions noted, surgical site, lumbar spine, CDI, DL scant serrous sangenous drainage Laboratory Results - last 24 hr 02/04/17 02/04/17 07:35 07:35 WBC 10.1 D RBC 3.67 Hgb 10.9 Hct 31.9 L MCV 86.7 MCHC 34.1 RDW 12.0 Plt Count 252 MPV 8.2 Neutrophils % 74.7 D Lymphocytes % 12.6 D Monocytes % 11.0 H Eosinophils % 1.2 D Basophils % 0.5 Sodium 135 L Potassium 4.3 Chloride 101 Carbon Dioxide 24 Anion Gap 10 BUN 11 D Creatinine 0.8 Creat Clearance w eGFR > 60 Random Glucose 101 Calcium 9.1 Phosphorus 4.2 Magnesium 1.7 L Total Bilirubin 0.7 AST 20 D ALT 29 D Alkaline Phosphatase 134 H D Total Protein 6.2 L Albumin 3.2 L D Active Medications Generic Name Dose Route Start Last Admin Trade Name Freq PRN Reason Stop Dose Admin Buspirone HCl 15 mg 02/03/17 22:00 02/04/17 10:23 Buspar - PO 15 mg BID CHRIS Administration Enoxaparin Sodium 40 mg 02/04/17 10:00 02/04/17 10:23 Lovenox - SQ 40 mg DAILY CHRIS Administration Fentanyl 50 mcg 02/03/17 13:27 Sublimaze Injection - IVPUSH 02/06/17 13:28 [id number] PRN PAIN Fluoxetine HCl 30 mg 02/04/17 10:00 02/04/17 10:22 Prozac - PO 30 mg DAILY CHRIS Administration Vancomycin HCl 250 mls @ 166.667 mls/hr 02/04/17 11:00 02/04/17 10:24 Vancomycin (Pre-Docked) IVPB 166.667 mls/hr Q12H CHRIS Administration Levofloxacin 100 mls @ 100 mls/hr 02/04/17 10:00 02/04/17 10:23 Levaquin 500 Mg Premixed Ivpb - IVPB 100 mls/hr DAILY CHRIS Administration Morphine Sulfate 2 mg 02/03/17 16:43 Morphine Injection - IVPUSH Q3H PRN PAIN Ondansetron HCl 4 mg 02/02/17 20:11 02/03/17 12:30 Zofran Injection IVPUSH 4 mg Q6H PRN Administration NAUSEA AND/OR VOMITING Oxycodone/Acetaminophen 1 combo 02/03/17 16:42 Percocet 5/325 - PO Q4H PRN PAIN LEVEL 1-5 Oxycodone/Acetaminophen 2 combo 02/03/17 16:42 02/04/17 08:52 Percocet 5/325 - PO 2 combo Q4H PRN Administration PAIN LEVEL 6-10 Senna 1 tab 02/03/17 10:00 02/04/17 10:23 Senna - PO 1 tab BID CHRIS Administration Microbiology 02/02/17 17:33 Urine - Urine Clean Catch Urine Culture - Final NO GROWTH OBTAINED 02/02/17 17:33 Blood - Peripheral Venous Blood Culture - Preliminary NO GROWTH OBTAINED AFTER 24 HOURS, INCUBATION TO CONTINUE FOR 4 DAYS. 02/02/17 17:33 Blood - Peripheral Venous Blood Culture - Preliminary NO GROWTH OBTAINED AFTER 24 HOURS, INCUBATION TO CONTINUE FOR 4 DAYS. ASSESSMENT/PLAN: . s/p I&D of lumbar wound POD # 1 (Oh) - f/u wound, blood and urine cultures - continue vanc (02/04-) and levaquin (02/04) as per ID - continue percocet, pt reports adequate pain control - reports 06/29 pain, continue morphine 4mg q6h prn, start ultram 50mg q6h, ofirmev x 1 ordered, pt reports adverse reaction to oxycodone and dilaudid - Physical therapy - incentive spirometer, neurovascular checks q4h - Dr TEJADA consulted and followed - ID consulted and followed (Sky) 2. Depression and Anxiety - Continue Prozac, Buspar 3. ID: herpes simplex II - Continue Valtrex 4. FEN - advance to regular diet - Replete lytes prn 5. DVT Prophylaxis - OOB - SCDs - lovenox Dispo: requires inpatient admission Code Status: Full Code Visit type - Emergency Visit Emergency Visit: Yes ED Registration Date: 02/02/17 Care time: The patient presented to the Emergency Department on the above date and was hospitalized for further evaluation of their emergent condition. - New Patient This patient is new to me today: No - Critical Care Critical Care patient: No - Discharge Referral Referred to [facility] Med P.C.: No
--- NOTE | 2017-02-04 12:10 | PN ---
Progress Note, Physician Chief Complaint: Pt. resting comfortably, pain controlled, no GA complaints. - Current Medication List Current Medications: Active Medications Buspirone HCl (Buspar -) 15 mg PO BID [facility] Last Admin: 02/04/17 10:23 Dose: 15 mg Enoxaparin Sodium (Lovenox -) 40 mg SQ DAILY [facility] Last Admin: 02/04/17 10:23 Dose: 40 mg Fentanyl (Sublimaze Injection -) 50 mcg IVPUSH [id number] PRN PRN Reason: PAIN Stop: 02/06/17 13:28 Fluoxetine HCl (Prozac -) 30 mg PO DAILY [facility] Last Admin: 02/04/17 10:22 Dose: 30 mg Vancomycin HCl (Vancomycin (Pre-Docked)) 250 mls @ 166.667 mls/hr IVPB Q12H [facility] Last Admin: 02/04/17 10:24 Dose: 166.667 mls/hr Levofloxacin (Levaquin 500 Mg Premixed Ivpb -) 100 mls @ 100 mls/hr IVPB DAILY [facility] Last Admin: 02/04/17 10:23 Dose: 100 mls/hr Morphine Sulfate (Morphine Injection -) 2 mg IVPUSH Q3H PRN PRN Reason: PAIN Ondansetron HCl (Zofran Injection) 4 mg IVPUSH Q6H PRN PRN Reason: NAUSEA AND/OR VOMITING Last Admin: 02/03/17 12:30 Dose: 4 mg Oxycodone/Acetaminophen (Percocet 5/325 -) 1 combo PO Q4H PRN PRN Reason: PAIN LEVEL 1-5 Oxycodone/Acetaminophen (Percocet 5/325 -) 2 combo PO Q4H PRN PRN Reason: PAIN LEVEL 6-10 Last Admin: 02/04/17 08:52 Dose: 2 combo Senna (Senna -) 1 tab PO BID [facility] Last Admin: 02/04/17 10:23 Dose: 1 tab - Objective Vital Signs: Vital Signs Temperature 98.7 F 02/04/17 06:00 Pulse Rate 62 02/04/17 06:00 Respiratory Rate 18 02/04/17 06:00 Blood Pressure 91/57 02/04/17 06:00 O2 Sat by Pulse Oximetry (%) 97 02/04/17 06:00 Constitutional: Yes: Well Nourished, No Distress, Calm Neurological: Yes: WNL, Alert, Oriented Labs: CBC, BMP 02/04/17 07:35 02/04/17 07:35 INR, PTT INR 1.10 (0.82-1.09) 02/02/17 17:33 Assessment/Plan POD#1 s/p Lumbar wound I&D. Doing well. D/C from anesthesia care.
--- NOTE | 2017-02-04 13:45 | PN ---
Progress Note (short form) - Note Progress Note: pt without complaints afeb dressing clean DL - clean bloody drainage NVID cultures pending s/p I&D lumbar wound for late wound infection -follow cultures -ID help appreciated -will leave DL in for now
--- NOTE | 2017-02-04 14:41 | CONS ---
DATE OF CONSULTATION: DATE OF DICTATION: 02/04/2017 The patient is a 51-year-old female with a history of lumbar spinal stenosis and DJD, evaluated for a surgical wound infection. The patient has a history of chronic low back pain. She had undergone an elective laminectomy with fusion of L4-L5 vertebrae on December 02, 2016. The patient reports that postoperatively, she did notice some wound leakage which subsequently resolved. She had developed a scab at the bottom of the surgical wound which healed. She had an MRI done at [facility], on January 21, 2017, for an unrelated condition. The MRI incidentally noted a fluid collection measuring approximately 5 cm at the L4-L5 level at the posterior laminectomy operative site. She reports that on or about Wednesday, January 30, 2017, a dry scab at the inferior pole of the wound fell off and some drainage was noted. She denied any fever or chills. She developed worsening discomfort, surgical wound drainage and erythema. She was evaluated and admitted to the hospital where she underwent an irrigation and debridement of the lumbar wound. A superficial fluid collection was found and cultures were sent. She was empirically treated with clindamycin. The patient has a history of PENICILLIN and ERYTHROMYCIN allergies. At the present time, she complains of low back pain. She is able to ambulate. She denies any fever or chills. PAST MEDICAL HISTORY: Positive for degenerative joint disease, lumbar spinal stenosis, anxiety, depression, genital herpes simplex. ALLERGIES: PENICILLIN (hives) and ERYTHROMYCIN (difficulty breathing). MEDICATIONS: Include Prozac, Valtrex, BuSpar, Neurontin. SOCIAL HISTORY: Lives at home with her significant other. She is a non-smoker. Occasional EtOH. SYSTEMS REVIEW: Neurologic: As per HPI. Cardiac: Negative chest pain or palpitations. Respiratory: Negative cough or sputum production. Gastrointestinal: Negative vomiting or diarrhea. Genitourinary: Negative for urinary tract infection. LABORATORY DATA: White count is 6.8, hematocrit 32.1, platelet count 233. BUN 9, creatinine 0.7. Urinalysis: Negative leukocyte esterase. ESR 45, C-reactive protein 8.8. PHYSICAL EXAMINATION: General: On physical examination, she is supine in bed in no acute distress. Vital signs: Temperature 98.7, blood pressure 91/52, pulse 62 and regular, respirations 18 per minute. Eyes: The sclerae are anicteric. Heart: Heart sounds S1, S2. Lungs: Clear. Abdomen: Soft. No tenderness elicited. No mass, rebound or rigidity. Back: A surgical drain is present in the lumbar wound draining serosanguineous fluid in the Bradley-Krishnamurthy drain. There is slight erythema present around the surgical drain. Extremities: Negative for edema and negative Homans sign. IMPRESSION: 1. Postoperative day number 1 irrigation and drainage of subcutaneous collection at lumbar laminectomy surgical site. 2. Possible wound infection. 3. PENICILLIN and ERYTHROMYCIN allergies. Await culture results. Blood and fluid cultures have been obtained. Obtain a wound culture for AFB and fungi. Empiric antibiotic coverage in this PENICILLIN-allergic patient with vancomycin and Levaquin. Further recommendations pending cultures. Will follow. Thank you for the kind referral. ARIELLE ROJO M.D. [id number]
[2017-02-05] MEDS: OXYCODONE/APAP 5/325MG COMBO TABLET PO PRN ×4 (02:00→21:30)
[2017-02-05 08:41] LABS: EOSINOPHIL 2.9 % (0-4.5); MCH 30.8 pg (25.7-33.7); MCHC 35.4 g/dl (32.0-36.0); MEAN CELL VOLUME 87.1 fl (80-96); MEAN PLT VOLUME 7.7 fl (7.5-11.1); NEUTROPHILS 68.7 % (42.8-82.8); PLATELET COUNT 238 K/MM3 (134-434); RDW 11.9 % (11.6-15.6); WHITE BLOOD COUNT 10.5 K/mm3 (4.0-10.8)
[2017-02-05 08:44] LABS: ANION GAP 10 (8-16); CALCIUM 8.8 mg/dl (8.4-10.2); CO2 25 mmol/L (22-28); CREATININE 0.7 mg/dl (0.6-1.3); GLUCOSE,RANDOM 105 mg/dl (74-106); MAGNESIUM 1.8 mg/dL (1.8-2.4)
[2017-02-05] MEDS ORDERED: PT OWN MED DRAWER 7, Y5N ONE (09:35)
[2017-02-05] MEDS: ENOXAPARIN NA (PORCINE) 40 MG/0.4 ML DISP.SYRIN SQ SCH (09:36)
[2017-02-05] MEDS: FLUoxetine HCL 10 MG CAPSULE (FP) PO SCH (09:38)
[2017-02-05] MEDS: busPIRone HCL 5 MG TABLET PO SCH ×2 (09:38→21:29)
[2017-02-05] MEDS: SENNOSIDES 8.6MG TABLET (FP) PO SCH ×2 (09:38→21:31)
[2017-02-05] MEDS: LEVOFLOXACIN 500 MG IVPB 100 ML IVPB SCH (09:39)
--- NOTE | 2017-02-05 12:10 | PN ---
Physical Exam: SUBJECTIVE: Patient seen and examined, ambulatory with a walker throughout the nursing station, reports feeling well, denies any shortness of breath or paresthesia to the lower extremities. prelim wound culture +mrsa presumptive OBJECTIVE: patient is a 51 y/o female with a past medical history of Chronic Back pain s/p Laminectomy/Fusion 11/2016, Depression, Anxiety, Herpes simplex type II. patient was admitted from the emergency department for lumbar wound, pt is s/p I&D of lumbar wound (Oh), POD # 2 Vital Signs Period Temp Pulse Resp BP Sys/Fierro Pulse Ox Last 24 Hr 97.8 F-99.1 F 75-83 18-18 91-103/55-57 96-100 GENERAL: The patient is awake, alert, and fully oriented, in no acute distress. HEAD: Normal with no signs of trauma. EYES: PERRL, extraocular movements intact, sclera anicteric, conjunctiva clear. No ptosis. ENT: Ears normal, nares patent, oropharynx clear without exudates, moist mucous membranes. NECK: Trachea midline, full range of motion, supple. LUNGS: Breath sounds equal, clear to auscultation bilaterally, no wheezes, no crackles, no accessory muscle use. HEART: Regular rate and rhythm, S1, S2 without murmur, rub or gallop. ABDOMEN: Soft, nontender, nondistended, normoactive bowel sounds, no guarding, no rebound, no hepatosplenomegaly, no masses. EXTREMITIES: 2+ pulses, warm, well-perfused, no edema. NEUROLOGICAL: Cranial nerves II through XII grossly intact. Normal speech, gait not observed. PSYCH: Normal mood, normal affect. SKIN: Warm, dry, normal turgor, no rashes or lesions noted, surgical site, lumbar spine, CDI, DL scant serrous sangenous drainage Laboratory Results - last 24 hr 02/05/17 02/05/17 07:25 07:25 WBC 10.5 RBC 3.68 Hgb 11.3 Hct 32.0 L MCV 87.1 MCHC 35.4 RDW 11.9 Plt Count 238 MPV 7.7 Neutrophils % 68.7 Lymphocytes % 12.7 Monocytes % 14.7 H Eosinophils % 2.9 D Basophils % 1.0 Sodium 135 L Potassium 3.9 Chloride 100 Carbon Dioxide 25 Anion Gap 10 BUN 8 D Creatinine 0.7 Random Glucose 105 Calcium 8.8 Magnesium 1.8 Active Medications Generic Name Dose Route Start Last Admin Trade Name Freq PRN Reason Stop Dose Admin Buspirone HCl 15 mg 02/03/17 22:00 02/05/17 09:38 Buspar - PO 15 mg BID CHRIS Administration Enoxaparin Sodium 40 mg 02/04/17 10:00 02/05/17 09:36 Lovenox - SQ 40 mg DAILY CHRIS Administration Fentanyl 50 mcg 02/03/17 13:27 Sublimaze Injection - IVPUSH 02/06/17 13:28 [id number] PRN PAIN Fluoxetine HCl 30 mg 02/04/17 10:00 02/05/17 09:38 Prozac - PO 30 mg DAILY CHRIS Administration Vancomycin HCl 250 mls @ 166.667 mls/hr 02/04/17 11:00 02/04/17 23:02 Vancomycin (Pre-Docked) IVPB 166.667 mls/hr Q12H CHRIS Administration Levofloxacin 100 mls @ 100 mls/hr 02/04/17 10:00 02/05/17 09:39 Levaquin 500 Mg Premixed Ivpb - IVPB 100 mls/hr DAILY CHRIS Administration Morphine Sulfate 2 mg 02/03/17 16:43 Morphine Injection - IVPUSH Q3H PRN PAIN Ondansetron HCl 4 mg 02/02/17 20:11 02/03/17 12:30 Zofran Injection IVPUSH 4 mg Q6H PRN Administration NAUSEA AND/OR VOMITING Oxycodone/Acetaminophen 1 combo 02/03/17 16:42 Percocet 5/325 - PO Q4H PRN PAIN LEVEL 1-5 Oxycodone/Acetaminophen 2 combo 02/03/17 16:42 02/05/17 09:39 Percocet 5/325 - PO 2 combo Q4H PRN Administration PAIN LEVEL 6-10 Senna 1 tab 02/03/17 10:00 02/05/17 09:38 Senna - PO 1 tab BID CHRIS Administration Microbiology 02/03/17 Unknown Back Wound Culture - Preliminary Presumptive Mrsa (Pbp2a Pos) 02/02/17 17:33 Blood - Peripheral Venous Blood Culture - Preliminary NO GROWTH OBTAINED AFTER 48 HOURS, INCUBATION TO CONTINUE FOR 3 DAYS. 02/02/17 17:33 Blood - Peripheral Venous Blood Culture - Preliminary NO GROWTH OBTAINED AFTER 48 HOURS, INCUBATION TO CONTINUE FOR 3 DAYS. 02/03/17 Unknown Back LIVAN Preparation - Preliminary 02/03/17 Unknown Back Fungal Culture - Preliminary 02/02/17 17:33 Urine - Urine Clean Catch Urine Culture - Final NO GROWTH OBTAINED ASSESSMENT/PLAN: 1. s/p I&D of lumbar wound POD # 2 (Oh) - wound culture presumptive preliminary MRSA, continue van (02/04-) and levaquin (02/04-) until final culture are obtained to narrow down abx - continue percocet, pt reports adequate pain control - continue Physical therapy - incentive spirometer, neurovascular checks q4h - Dr TEJADA consulted and followed - ID consulted and followed (Sky) 2. Depression and Anxiety - Continue Prozac, Buspar 3. ID: herpes simplex II - Continue Valtrex 4. FEN - regular diet - Replete lytes prn 5. DVT Prophylaxis - OOB - SCDs - lovenox Dispo: requires inpatient admission Code Status: Full Code
[2017-02-05] MEDS: VANCOMYCIN 1 GRAM (PRE-DOCKED) 250 ML IVPB SCH (17:45)
--- NOTE | 2017-02-05 20:39 | PN ---
Progress Note (short form) - Note Progress Note: pt without complaints afeb [id number] wound c/d/i, new dressing placed rikki scant serosanguinous drainage cultures - presumptive mrsa S/p I&D for late lumbar infection -iv abx per id -f/u final cultures
[2017-02-05] MEDS ORDERED: MAGNESIUM HYDROX 2400MG/30ML ORAL SUSPENSION 30 ML CUP PO ONE (22:07)
[2017-02-06] MEDS: OXYCODONE/APAP 5/325MG COMBO TABLET PO PRN ×5 (01:21→22:29)
[2017-02-06 08:00] LABS: EOSINOPHIL 7.6 % (0-4.5); MCH 28.8 pg (25.7-33.7); MCHC 32.9 g/dl (32.0-36.0); MEAN CELL VOLUME 87.5 fl (80-96); MEAN PLT VOLUME 7.6 fl (7.5-11.1); NEUTROPHILS 49.1 % (42.8-82.8); PLATELET COUNT 244 K/MM3 (134-434); RDW 11.6 % (11.6-15.6); WHITE BLOOD COUNT 7.8 K/mm3 (4.0-10.8)
[2017-02-06 08:29] LABS: CALCIUM 8.8 mg/dl (8.4-10.2); COCKROFT - GAULT 104.8475; CREATININE 0.7 mg/dl (0.6-1.3); MAGNESIUM 1.9 mg/dL (1.8-2.4); PHOSPHOROUS 3.9 mg/dl (2.5-4.6)
[2017-02-06] MEDS: VANCOMYCIN 750 MG in DEXTROSE 5%-WATER - 250 ML IVPB SCH ×2 (09:00→21:25)
--- NOTE | 2017-02-06 09:06 | PN ---
Physical Exam: SUBJECTIVE: Patient seen and examined. Walking. Pain improved but still present. No chills. OBJECTIVE: 51 year old female with a past s/p laminectomy/fusion on 11/2016, depression/anxiety. HSV II, POD #3 s/p I&D of lumbar wound. Final wound culture grew MRSA. 25mL cloudy serous fluid in DL drain. Vital Signs Period Temp Pulse Resp BP Sys/Fierro Pulse Ox Last 24 Hr 97.6 F-98.5 F 70-77 18-18 85-115/46-55 97-99 GENERAL: The patient is awake, alert, and fully oriented, in no acute distress. EYES: PERRL, extraocular movements intact, sclera anicteric, conjunctiva clear. No ptosis. ENT: Ears normal, nares patent, oropharynx clear without exudates, moist mucous membranes. NECK: Trachea midline, full range of motion, supple. LUNGS: Breath sounds equal, clear to auscultation bilaterally, no wheezes, no crackles, no accessory muscle use. HEART: Regular rate and rhythm, S1, S2 without murmur, rub or gallop. ABDOMEN: Soft, nontender, nondistended, normoactive bowel sounds, no guarding, no rebound, no hepatosplenomegaly, no masses. EXTREMITIES: 2+ pulses, warm, well-perfused, no edema. NEUROLOGICAL: Cranial nerves II through XII grossly intact. Normal speech, gait not observed. PSYCH: Normal mood, normal affect. SKIN: Warm, dry, normal turgor, no rashes or lesions noted. Surgical site CDI, some surrounding erythema, DL with cloudy purulent drainage. Laboratory Results - last 24 hr 02/05/17 02/06/17 02/06/17 11:55 07:30 07:30 WBC 7.8 RBC 3.59 L Hgb 10.3 L Hct 31.4 L MCV 87.5 MCHC 32.9 RDW 11.6 Plt Count 244 MPV 7.6 Neutrophils % 49.1 D Lymphocytes % 28.3 D Monocytes % 14.0 H Eosinophils % 7.6 H D Basophils % 1.0 Sodium 131 L Potassium 3.8 Chloride 98 Carbon Dioxide 27 Anion Gap 6 L BUN 7 Creatinine 0.7 Random Glucose 128 H D Calcium 8.8 Phosphorus 3.9 Magnesium 1.9 Vancomycin Trough 17.032 H* Active Medications Generic Name Dose Route Start Last Admin Trade Name Freq PRN Reason Stop Dose Admin Buspirone HCl 15 mg 02/03/17 22:00 02/05/17 21:29 Buspar - PO 15 mg BID CHRIS Administration Enoxaparin Sodium 40 mg 02/04/17 10:00 02/05/17 09:36 Lovenox - SQ 40 mg DAILY CHRIS Administration Fentanyl 50 mcg 02/03/17 13:27 Sublimaze Injection - IVPUSH 02/06/17 13:28 [id number] PRN PAIN Fluoxetine HCl 30 mg 02/04/17 10:00 02/05/17 09:38 Prozac - PO 30 mg DAILY CHRIS Administration Levofloxacin 100 mls @ 100 mls/hr 02/04/17 10:00 02/05/17 09:39 Levaquin 500 Mg Premixed Ivpb - IVPB 100 mls/hr DAILY CHRIS Administration Vancomycin HCl 750 mg/ 250 mls @ 250 mls/hr 02/06/17 10:00 Dextrose IVPB BID@1000,2200 [facility] Morphine Sulfate 2 mg 02/03/17 16:43 Morphine Injection - IVPUSH Q3H PRN PAIN Ondansetron HCl 4 mg 02/02/17 20:11 02/03/17 12:30 Zofran Injection IVPUSH 4 mg Q6H PRN Administration NAUSEA AND/OR VOMITING Oxycodone/Acetaminophen 1 combo 02/03/17 16:42 02/05/17 14:54 Percocet 5/325 - PO 1 combo Q4H PRN Administration PAIN LEVEL 1-5 Oxycodone/Acetaminophen 2 combo 02/03/17 16:42 02/06/17 06:20 Percocet 5/325 - PO 2 combo Q4H PRN Administration PAIN LEVEL 6-10 Senna 1 tab 02/03/17 10:00 02/05/17 21:31 Senna - PO 1 tab BID CHRIS Administration ASSESSMENT/PLAN: 51 year old female s/p I&D of lumbar wound 1. S/p I&D of lumbar wound POD # 3 -Wound culture: MRSA, continue Vancomycin (02/04-), dc Levaquin -Trough high yesterday at 17; dose given before result was available. ID notified and decreased dose to 750mg bid. Check trough 02/07. -Continue percocet, pt reports adequate pain control -Continue PT -Incentive spirometer, neurovascular checks q4h -Orthopedics and ID following -Plan for PICC Wednesday 2. Depression and Anxiety -No active issues -Continue Prozac Buspar 3. ID: herpes simplex II - Continue Valtrex 4. F/E/N -Mild hyponatremia (131), follow -Regular diet 5. DVT Prophylaxis -OOB -SCDs -Lovenox Dispo: Continues to require inpatient care Code Status: Full Code Visit type - Emergency Visit Emergency Visit: Yes ED Registration Date: 02/02/17 Care time: The patient presented to the Emergency Department on the above date and was hospitalized for further evaluation of their emergent condition. - New Patient This patient is new to me today: Yes Date on this admission: 02/06/17 - Critical Care Critical Care patient: No - Discharge Referral Referred to [facility] Med P.C.: No
[2017-02-06] MEDS ORDERED: PT OWN MED DRAWER 7, Y5N ONE (09:37)
[2017-02-06] MEDS: LEVOFLOXACIN 500 MG IVPB 100 ML IVPB SCH (10:00)
[2017-02-06] MEDS: FLUoxetine HCL 10 MG CAPSULE (FP) PO SCH (10:00)
[2017-02-06] MEDS: SENNOSIDES 8.6MG TABLET (FP) PO SCH ×2 (10:00→21:25)
[2017-02-06] MEDS: ENOXAPARIN NA (PORCINE) 40 MG/0.4 ML DISP.SYRIN SQ SCH (10:00)
[2017-02-06] MEDS: busPIRone HCL 5 MG TABLET PO SCH ×2 (10:47→21:25)
--- NOTE | 2017-02-06 15:52 | PN ---
Progress Note (short form) - Note Progress Note: pt without complaints afeb WBC: 7.8 wound c/d/i rikki 30cc serosanguinous drainage NVID cultures MRSA -OOB -will await ID imput regarding length of treatment - will likely need picc line -will continue to monitor wound -will pull drain tomorrow if continued mild drainage
[2017-02-06] MEDS ORDERED: REFRIGERATED ANITBIOTICS ONE (21:22)
[2017-02-06] MEDS ORDERED: OXYCODONE/APAP 5/325MG COMBO TABLET PO PRN (22:20)
[2017-02-07] MEDS: OXYCODONE/APAP 5/325MG COMBO TABLET PO PRN ×4 (02:40→21:59)
[2017-02-07] MEDS ORDERED: PICC LINE 8 ML FLUSH PROTOCOL IVPUSH PRN (08:50)
[2017-02-07 09:20] LABS: BASOPHIL 1.2 % (0-2.0); EOSINOPHIL 8.5 % (0-4.5); MCH 29.3 pg (25.7-33.7); MCHC 33.5 g/dl (32.0-36.0); MEAN CELL VOLUME 87.6 fl (80-96); MEAN PLT VOLUME 7.2 fl (7.5-11.1); NEUTROPHILS 50.1 % (42.8-82.8); PLATELET COUNT 337 K/MM3 (134-434); RDW 11.7 % (11.6-15.6)
--- NOTE | 2017-02-07 09:26 | PN ---
[id number] gas. OBJECTIVE: WBC 7.0. Afebrile. Vital Signs Period Temp Pulse Resp BP Sys/Fierro Pulse Ox Last 24 Hr 97.6 F-98.8 F 53-67 19-19 96-104/62-65 96-98 GENERAL: The patient is awake, alert, and fully oriented, in no acute distress. HEAD: Normal with no signs of trauma. EYES: PERRL, extraocular movements intact, sclera anicteric, conjunctiva clear. No ptosis. ENT: Ears normal, nares patent, oropharynx clear without exudates, moist mucous membranes. NECK: Trachea midline, full range of motion, supple. LUNGS: Breath sounds equal, clear to auscultation bilaterally, no wheezes, no crackles, no accessory muscle use. HEART: Regular rate and rhythm, S1, S2 without murmur, rub or gallop. ABDOMEN: Soft, nontender, nondistended, normoactive bowel sounds, no guarding, no rebound, no hepatosplenomegaly, no masses. EXTREMITIES: 2+ pulses, warm, well-perfused, no edema. NEUROLOGICAL: Cranial nerves II through XII grossly intact. Normal speech, gait not observed. PSYCH: Normal mood, normal affect. SKIN: Warm, dry, normal turgor. I&D site clean, dry, intact, some surrounding erythema. Active Medications Generic Name Dose Route Start Last Admin Trade Name Freq PRN Reason Stop Dose Admin Buspirone HCl 15 mg 02/03/17 22:00 02/06/17 21:25 Buspar - PO 15 mg BID CHRIS Administration Enoxaparin Sodium 40 mg 02/04/17 10:00 02/06/17 10:00 Lovenox - SQ 40 mg DAILY CHRIS Administration Fluoxetine HCl 30 mg 02/04/17 10:00 02/06/17 10:00 Prozac - PO 30 mg DAILY CHRIS Administration IV Flush 8 ml 02/07/17 08:50 Picc Line Flush IVPUSH PRN PRN Protocol Vancomycin HCl 750 mg/ 250 mls @ 250 mls/hr 02/06/17 10:00 02/06/17 21:25 Dextrose IVPB 250 mls/hr BID@1000,2200 CHRIS Administration Ondansetron HCl 4 mg 02/02/17 20:11 02/03/17 12:30 Zofran Injection IVPUSH 4 mg Q6H PRN Administration NAUSEA AND/OR VOMITING Oxycodone/Acetaminophen 1 combo 02/06/17 22:24 Percocet 5/325 - PO Q4H PRN PAIN LEVEL 1-5 Oxycodone/Acetaminophen 2 combo 02/06/17 22:24 02/07/17 02:40 Percocet 5/325 - PO 2 combo Q4H PRN Administration PAIN LEVEL 6-10 Senna 1 tab 02/03/17 10:00 02/06/17 21:25 Senna - PO 1 tab BID CHRIS Administration ASSESSMENT/PLAN: 51 year old female s/p I&D of lumbar wound 1. S/p I&D of lumbar wound POD # 3 -Wound culture: MRSA, continue Vancomycin (02/04-), Levaquin dc'd -Today's trough pending -Continue Percocet, pt reports adequate pain control -Continue PT -Incentive spirometer, neurovascular checks q4h -Orthopedics and ID following -Plan for PICC Wednesday 2. Depression and Anxiety -No active issues -Continue Prozac, Buspar 3. ID: herpes simplex II - Continue Valtrex 4. F/E/N -Mild hyponatremia (133), follow -Regular diet 5. DVT Prophylaxis -OOB -SCDs -Lovenox Dispo: Continues to require inpatient care Code Status: Full Code Visit type - Emergency Visit Emergency Visit: Yes ED Registration Date: 02/02/17 Care time: The patient presented to the Emergency Department on the above date and was hospitalized for further evaluation of their emergent condition. - New Patient This patient is new to me today: No - Critical Care Critical Care patient: No - Discharge Referral Referred to [facility] Med P.C.: No
[2017-02-07] MEDS ORDERED: PT OWN MED DRAWER 7, Y5N ONE (09:35)
[2017-02-07 09:41] LABS: ALBUMIN 3.4 g/dl (3.5-5.0); ALK PHOS 236 U/L (32-92); ANION GAP 5 (8-16); BILIRUBIN,TOTAL 0.3 mg/dl (0.2-1.0); CALCIUM 9.4 mg/dl (8.4-10.2); CO2 29 mmol/L (22-28); CREATININE 0.7 mg/dl (0.6-1.3); GLUCOSE,RANDOM 92 mg/dl (74-106); SGOT/AST 17 U/L (10-42); SGPT/ALT 19 U/L (10-40)
[2017-02-07] MEDS ORDERED: MAGNESIUM HYDROX 2400MG/30ML ORAL SUSPENSION 30 ML CUP PO PRN (10:00)
[2017-02-07] MEDS: busPIRone HCL 5 MG TABLET PO SCH ×2 (10:33→21:44)
[2017-02-07] MEDS: SENNOSIDES 8.6MG TABLET (FP) PO SCH ×2 (10:34→21:44)
[2017-02-07] MEDS: ENOXAPARIN NA (PORCINE) 40 MG/0.4 ML DISP.SYRIN SQ SCH (10:34)
[2017-02-07] MEDS ORDERED: REFRIGERATED ANITBIOTICS ONE ×2 (11:49→18:21)
[2017-02-07] MEDS: FLUoxetine HCL 10 MG CAPSULE (FP) PO SCH (11:52)
[2017-02-07] MEDS: VANCOMYCIN 750 MG in DEXTROSE 5%-WATER - 250 ML IVPB SCH (11:52)
[2017-02-07] MEDS: DOCUSATE SODIUM 100 MG CAPSULE (FP) PO SCH ×2 (14:43→21:44)
[2017-02-07] MEDS ORDERED: VANCOMYCIN 1 GRAM (PRE-DOCKED) 1,000 MG/250 ML BAG IVPB SCH (22:00)
--- NOTE | 2017-02-07 22:03 | PN ---
Progress Note (short form) - Note Progress Note: pt without complaints afeb wbc 7 wound c/d/i rikki pulled with scant drainage nvid s/p I&D Lumbar Wound infection with MRSA -PICC line tomorrow -continue IV abx per ID -dispo planning
[2017-02-07 22:42] VITALS: BP 104/68; PULSE 66; TEMP 97.9
[2017-02-08] MEDS: OXYCODONE/APAP 5/325MG COMBO TABLET PO PRN (05:48)
[2017-02-08] MEDS: DOCUSATE SODIUM 100 MG CAPSULE (FP) PO SCH (06:23)
--- NOTE | 2017-02-08 07:52 | PN ---
Progress Note (short form) - Note Progress Note: doing well no complaints Vital Signs Period Temp Pulse Resp BP Sys/Fierro Pulse Ox Last 24 Hr 97.9 F-99.1 F 66-67 16-18 104-105/62-68 95-95 cor-rrr lungs clear abd soft,nt dressing intact on the back CBC, BMP 02/07/17 09:00 02/07/17 09:00 Microbiology 02/02/17 17:33 Blood - Peripheral Venous Blood Culture - Final NO GROWTH AFTER 5 DAYS INCUBATION 02/02/17 17:33 Blood - Peripheral Venous Blood Culture - Final NO GROWTH AFTER 5 DAYS INCUBATION 02/03/17 Unknown Back Gram Stain - Final 02/03/17 Unknown Back Wound Culture - Final Mr S Aureus 02/03/17 Unknown Back LIVAN Preparation - Preliminary 02/03/17 Unknown Back Fungal Culture - Preliminary 02/02/17 17:33 Urine - Urine Clean Catch Urine Culture - Final NO GROWTH OBTAINED a/p s/p laminectomy 11/2016 with screws MRSA wound infection needs 6 weeks iv vancomycin now day # vancomycin needs weekly labs, cbc,bmp, vancomycin trough- should have trough drawn this wednesday should f/u with Dr Swanson in our office in 2 weeks [phone] thanks!
--- NOTE | 2017-02-08 08:18 | DS ---
Physical Exam: SUBJECTIVE: Patient seen and examined, patient reports feeling well, ambulatory at bedside, denies any chest pain or shortness of breath. OBJECTIVE: This is a 51 y/o female with a past medical history of Chronic Back pain s/p Laminectomy/Fusion 11/2016, Depression, Anxiety, Genital Herpes. Who presents to the emergency department from Orthopedic's office with lumbar pain and discharge from surgical site. Patient reports having lumbar pain and noting leaking through her clothes from the surgical site x 2 days. She reports the discharge as clear to yellow with foul smelling odor. Patient went to see her ortho today and was sent in for admission for Lumbar Abscess. Patient denies bowel or urinary loss of function. Patient denies fever, chills, SOB, CP, AP, N/ V/D, constipation, dysuria. ER course was notable for: (1) CRP 8.8 (2) No Luekocytosis, Afebrile (3) EKG- NSR 66 bpm, no STD/PEÑA Vital Signs Period Temp Pulse Resp BP Sys/Fierro Pulse Ox Last 24 Hr 97.9 F-99.1 F 66-67 16-18 104-105/62-68 95-95 PHYSICAL EXAM GENERAL: The patient is awake, alert, and fully oriented, in no acute distress. HEAD: Normal with no signs of trauma. EYES: PERRL, extraocular movements intact, sclera anicteric, conjunctiva clear. ENT: Ears normal, nares patent, oropharynx clear without exudates, moist mucous membranes. NECK: Trachea midline, full range of motion, supple. LUNGS: Breath sounds equal, clear to auscultation bilaterally, no wheezes, no crackles, no accessory muscle use. HEART: Regular rate and rhythm, S1, S2 without murmur, rub or gallop. ABDOMEN: Soft, nontender, nondistended, normoactive bowel sounds, no guarding, no rebound, no hepatosplenomegaly, no masses. EXTREMITIES: 2+ pulses, warm, well-perfused, no edema. NEUROLOGICAL: Cranial nerves II through XII grossly intact. Normal speech, gait not observed. PSYCH: Normal mood, normal affect. SKIN: Warm, dry, normal turgor, no rashes or lesions noted. LABS Laboratory Results - last 24 hr 02/07/17 02/07/17 02/07/17 09:00 09:00 09:00 WBC 7.0 RBC 3.99 Hgb 11.7 D Hct 35.0 MCV 87.6 MCHC 33.5 RDW 11.7 Plt Count 337 D MPV 7.2 L Neutrophils % 50.1 Lymphocytes % 29.5 Monocytes % 10.7 H Eosinophils % 8.5 H Basophils % 1.2 Sodium 133 L Potassium 4.2 Chloride 99 Carbon Dioxide 29 H Anion Gap 5 L BUN 5 L D Creatinine 0.7 Creat Clearance w eGFR > 60 Random Glucose 92 D Calcium 9.4 Total Bilirubin 0.3 D AST 17 ALT 19 D Alkaline Phosphatase 236 H D Total Protein 7.0 Albumin 3.4 L Vancomycin Trough 9.614 Microbiology 02/04/17 11:22 Wound AFB Smear Concentration - Preliminary 02/04/17 11:22 Wound Mycobacterial Culture - Preliminary 02/02/17 17:33 Blood - Peripheral Venous Blood Culture - Final NO GROWTH AFTER 5 DAYS INCUBATION 02/02/17 17:33 Blood - Peripheral Venous Blood Culture - Final NO GROWTH AFTER 5 DAYS INCUBATION 02/03/17 Unknown Back Gram Stain - Final 02/03/17 Unknown Back Wound Culture - Final Mr S Aureus 02/03/17 Unknown Back LIVAN Preparation - Preliminary 02/03/17 Unknown Back Fungal Culture - Preliminary 02/02/17 17:33 Urine - Urine Clean Catch Urine Culture - Final NO GROWTH OBTAINED HOSPITAL COURSE: Patient was admitted from the emergency department for a lumbar wound, patient is s/p lumbar laminectomy with fusion in 12/04 (Oh). Patient was started on clindaymicin in the emergency department. She was evaluated by Dr Swanson (ID ) on hospital day 2 and clindamycin was discontinued and vancomycin and levaquin was started. wound culture resulted as + MRSA, levaquin was discontinued and vancomycin was given for 6 days of hospitalization. PICC line was placed on 02/09/16 and patient was discharged with visiting nurse for termite exterminator helper antibiotics. patient has a past medical history of depression and prozac and buspar was continued throughout hospitalization. In addition, she has pmh of herpes simplex II and valtrex was continued. Date of Admission:02/02/17 Date of Discharge: 02/08/17 Minutes to complete discharge: 45 Discharge Summary Reason For Visit: BACK ABSCESS Current Active Problems Back abscess (Acute) Chronic back pain (Acute) DVT prophylaxis (Acute) Depression with anxiety (Acute) Herpes genitalia (Acute) Condition: Improved - Instructions Diet, Activity, Other Instructions: - please follow up with Dr Swanson within 2 weeks, please have lab work drawn prior to your appointment with Dr Swanson - cbc, BMP, vancomycin trough to be drawn on 02/10/17 - every wednesday cbc, bmp, vancomycin level - please follow up with Dr Wiseman within 2 week - keep surgical site, clean and dry at all times - if fever, chest pain, or shortness of breath develops please return to the emergency department - Referrals: Damián Swanson MD [Staff Physician] - 2 Weeks Disposition: VNS/HOME HEALTH CARE - Home Medications Comprehensive Discharge Medication List: Ambulatory Orders Fluoxetine HCl [Prozac -] 30 mg PO DAILY 11/23/16 Valacyclovir HCl [Valtrex] 1,000 mg PO WEEKLY 11/23/16 Buspirone HCl [Buspar -] 15 mg PO BID 02/02/17 Gabapentin [Neurontin -] 300 mg PO Q8H 02/02/17 This patient is new to me today: No Emergency Visit: Yes ED Registration Date: 02/02/17 Care time: The patient presented to the Emergency Department on the above date and was hospitalized for further evaluation of their emergent condition. Critical Care patient: No - Discharge Referral Referred to [facility] Med P.C.: No
[2017-02-08 09:00] LABS: EOSINOPHIL 6.7 % (0-4.5); MCHC 33.6 g/dl (32.0-36.0); MEAN CELL VOLUME 86.5 fl (80-96); MEAN PLT VOLUME 7.4 fl (7.5-11.1); NEUTROPHILS 61.8 % (42.8-82.8); PLATELET COUNT 397 K/MM3 (134-434); RDW 11.5 % (11.6-15.6); WHITE BLOOD COUNT 8.1 K/mm3 (4.0-10.8)
[2017-02-08 09:11] LABS: ALBUMIN 3.5 g/dl (3.5-5.0); ALK PHOS 325 U/L (32-92); ANION GAP 10 (8-16); BILIRUBIN,TOTAL 0.4 mg/dl (0.2-1.0); CALCIUM 9.7 mg/dl (8.4-10.2); CO2 27 mmol/L (22-28); COCKROFT - GAULT 104.8475; CREATININE 0.7 mg/dl (0.6-1.3); GLUCOSE,RANDOM 103 mg/dl (74-106); SGOT/AST 37 U/L (10-42); SGPT/ALT 33 U/L (10-40); TOT PROT 7.1 g/dl (6.4-8.3)
[2017-02-08 09:39] LABS: INR 1.04 (0.82-1.09); PROTHROMBIN TIME (PATIENT) 11.6 SEC (10.2-13.0)
--- NOTE | 2017-02-08 11:00 | PN ---
Progress Note (short form) - Note Progress Note: S: Patient feeling well. No complaints. ROS negative. O: NAD. VSS. Afebrile. Wound with serous drainage. No purulence. Dressing changed. NVID. A/P: s/p I&D Lumbar Wound infection with MRSA -PICC line today -continue IV abx as per ID out-pt -dispo planning
== END 2017-02-08 14:42 | disposition home health service (06) | DRG 269 ==
LOC: FER 17:10 → FM/S 19:25
PROVIDERS: ADMIT Internal Medicine; ATTEND Nurse Practitioner Family
PROC: 3E10X8Z Irrigation of Skin and Mucous Membranes using Irrigating Substance (ICD-10-PCS; 2017-02-03)
PROC: 0J970ZZ Drainage of Back Subcutaneous Tissue and Fascia, Open Approach (ICD-10-PCS; principal; 2017-02-03 11:30)
PROC: 02HV33Z Insertion of Infusion Device into Superior Vena Cava, Percutaneous Approach (ICD-10-PCS; 2017-02-08)
DX: L02.212 Cutaneous abscess of back [any part, except buttock and flank] (principal); E87.1 Hypo-osmolality and hyponatremia; F41.8 Other specified anxiety disorders; A60.00 Herpesviral infection of urogenital system, unspecified; Z88.0 Allergy status to penicillin; B95.62 Methicillin resistant Staphylococcus aureus infection as the cause of diseases classified elsewhere; B99.8 Other infectious disease
CPT/HCPCS: 36415; 36569; 71010-TC; 77001-TC; 80048; 80053; 81003; 83735; 84100; 85025; 85610; 85651; 85730; 86140; 86850; 86900; 86901; 87040; 87070; 87086; 87102; 87116; 87186; 87205; 87206; 87210; 93005; 94760; 97116-GP; 97161-GP; 99283-25; C1751; G0480